=== PATIENT | female | born 1995 | race Caucasian/White ===

== ENCOUNTER 2016-05-27 13:39 | Emergency (ER) | payer OTHER ==
[~2016-05-27] VITALS: Ht 312.4 cm; Wt 74.6 kg
[2016-05-27 13:43] VITALS: TEMP 37.1; Ht 312.4 cm; Wt 74.6 kg
[2016-05-27] MEDS ORDERED: VNTHFA/IN INH (14:35)
[2016-05-27] MEDS ORDERED: SULF800T23 PO (14:35)
[2016-05-27 14:55] LABS: BUN/CREATININE RATIO 11.1 (10-20); CALCIUM 8.8 mg/dl (8.5-10.1); CREATININE 0.9 mg/dl (0.60-1.20); POTASSIUM 3.7 mmol/L (3.5-5.1)
[2016-05-27 14:58] LABS: BASO % 0.3 %; BASO ABS # 0.03 K/uL (0-0.2); COMPLETE YES; EOS % 3.5 %; HEMATOCRIT 39.1 % (37-47); IG% 0.3 %; LYMPH % 23.3 %; LYMPH ABS # 2.41 K/uL (1.2-3.4); MEAN CELL VOLUME 84.3 fL (80-100); MEAN CORPUSCULAR HEMOGLOBIN 30.2 pg (25-34); MEAN CORPUSCULAR HGB CONC 35.8 g/dl (32-36); MEAN PLATELET VOLUME 10.2 fL (7.4-10.4); MONO % 9.1 %; NEUT % 63.5 %; PLATELET COUNT 269 K/uL (130-400); RED BLOOD COUNT 4.64 M/uL (4.2-5.4); WHITE BLOOD COUNT 10.36 K/uL (4.8-10.8)
--- NOTE | 2016-05-27 15:23 | DIAGNOSTIC IMAGING REPORT ---
LEFT LOWER EXTREMITY VENOUS DOPPLER HISTORY: left leg swelling eval for dvt COMPARISON STUDY: None. FINDINGS: There is normal compressibility, flow, and augmentation within the left lower extremity deep venous system. Slight increased echogenicity within the subcutaneous fat of the distal anterior lower leg. This favors a mild cellulitis. No loculated fluid collections to suggest an abscess. IMPRESSION: No DVT within the left lower extremity. Suspect a mild cellulitis within the distal anterior lower leg. No fluid collections to suggest an abscess. Electronically signed by: Alexx Topete M.D. 05/27/2016 3:21 PM Dictated Date/Time: 05/27/2016 3:20 PM
[2016-05-27 16:13] VITALS: BP 109/67; PULSE 61; O2SAT 98
--- NOTE | 2016-05-27 18:00 | EMERGENCY ROOM VISIT NOTE ---
History Report prepared by Leela: Marilyn Nino Under the Supervision of: Dr. Fabian Kaur M.D. First contact with patient: 13:50 Chief Complaint: INFECTION Stated Complaint: BACTERIAL INFECTION IN L LEG Nursing Triage Summary: Pt has infection on LLE Has been on cleocin and bactrim (from [facility]) rechecked at [facility] today and told to come to ED History of Present Illness The patient is a 21 year old female who presents to the Emergency Room with complaints of a worsening left lower extremity wound over the past 10 days. The patient states that she developed a blister on her left fajardo on May 17. She had some pain to the touch of the site of the blister. She is unsure why it developed. She was seen at [facility] on the and had the blister drained. It drained fluid and not pus. She was put on Clindamycin at that time. Her cultures grew Bactrim sensitive Acinetobacter, so she was started on Bactrim 2 days ago and stopped the clindamycin. Yesterday, she had some swelling to her left ankle. She states that she had some pain to the area when she was walking yesterday. Today, the swelling has gone down and the surrounding redness has improved. She only has pain on/around the wound when she walks a significant amount or touches the wound. Today, the patient was seen at [facility] again and was referred to the ED. She was told she may need IV antibiotics or surgery. The patient denies any recent hospitalization or exposure to health care other than in [facility] [employer] [facility]. Denies recent foreign travel. She is not on control. Denies fever, nausea, vomiting, or other complaints. Source of History: patient Onset: 10 days ago Position: other (left fajardo) Symptom Intensity: moderate Quality: other (a wound infection) Timing: worsening Associated Symptoms: No SOB, No chest pain, No fevers, No nausea, No vomiting Note: Other symptoms: pain with a lot of walking or to the touch Review of Systems See HPI for pertinent positives & negatives. A total of 10 systems reviewed and were otherwise negative. Past Medical & Surgical Medical Problems: (1) No Known Active Medical Problems Family History No pertinent family history stated. Social History Smoking Status: Never Smoker Housing Status: lives with roommate Occupation Status: [employer] student Current/Historical Medications Scheduled Albuterol Hfa (Ventolin Hfa), 2-4 PUFFS INH Q6H Sulfamethoxazole-Trimethoprim (Bactrim Ds 800MG/160MG), 1 TAB PO BID Allergies Coded Allergies: No Known Allergies (Unverified , 05/27/16) Physical Exam Vital Signs Date Time Temp Pulse Resp B/P Pulse Ox O2 Delivery O2 Flow Rate FiO2 05/27/16 16:13 61 16 109/67 98 05/27/16 13:43 37.1 84 18 137/88 95 Room Air Physical Exam Constitutional: Vital signs reviewed. Eyes: Pupils are equal round reactive to light. Conjunctiva are noninjected. ENT: Pharynx is clear without erythema or exudate. Mucous membranes are moist. Neck supple without meningeal signs. Respiratory: Clear to auscultation bilaterally. Breath sounds are equal bilaterally. Cardiovascular: Regular rate and rhythm. No rubs or gallops. GI: Soft, nondistended and nontender. Bowel sounds are present. Musculoskeletal: 5x2 cm eschar to the lower fajardo of the left leg without surrounding cellulitis. No fluctuance or abscess. Distal pulses are intact. Mild ankle swelling. Integumentary: No cyanosis. Neurological: The patient is awake and alert. No focal deficits. Psychiatric: Normal affect. Medical Decision & Procedures ER Provider Diagnostic Interpretation: Radiology results as stated below per my review and the radiologist's interpretation: LEFT LOWER EXTREMITY VENOUS DOPPLER HISTORY: left leg swelling eval for dvt COMPARISON STUDY: None. FINDINGS: There is normal compressibility, flow, and augmentation within the left lower extremity deep venous system. Slight increased echogenicity within the subcutaneous fat of the distal anterior lower leg. This favors a mild cellulitis. No loculated fluid collections to suggest an abscess. IMPRESSION: No DVT within the left lower extremity. Suspect a mild cellulitis within the distal anterior lower leg. No fluid collections to suggest an abscess. Electronically signed by: Alexx Topete M.D. 05/27/2016 3:21 PM Dictated Date/Time: 05/27/2016 3:20 PM Laboratory Results 05/27/16 14:14 Red Blood Count 4.64, Mean Corpuscular Volume 84.3, Mean Corpuscular Hemoglobin 30.2, Mean Corpuscular Hemoglobin Concent 35.8, Mean Platelet Volume 10.2, Neutrophils (%) (Auto) 63.5, Lymphocytes (%) (Auto) 23.3, Monocytes (%) (Auto) 9.1, Eosinophils (%) (Auto) 3.5, Basophils (%) (Auto) 0.3, Neutrophils # (Auto) 6.59, Lymphocytes # (Auto) 2.41, Monocytes # (Auto) 0.94, Eosinophils # (Auto) 0.36, Basophils # (Auto) 0.03 05/27/16 14:14 Test 05/27/16 14:14 White Blood Count 10.36 K/uL (4.8-10.8) Red Blood Count 4.64 M/uL (4.2-5.4) Hemoglobin 14.0 g/dL (12.0-16.0) Hematocrit 39.1 % (37-47) Mean Corpuscular Volume 84.3 fL (80-100) Mean Corpuscular Hemoglobin 30.2 pg (25-34) Mean Corpuscular Hemoglobin Concent 35.8 g/dl (32-36) Platelet Count 269 K/uL (130-400) Mean Platelet Volume 10.2 fL (7.4-10.4) Neutrophils (%) (Auto) 63.5 % Lymphocytes (%) (Auto) 23.3 % Monocytes (%) (Auto) 9.1 % Eosinophils (%) (Auto) 3.5 % Basophils (%) (Auto) 0.3 % Neutrophils # (Auto) 6.59 K/uL (1.4-6.5) Lymphocytes # (Auto) 2.41 K/uL (1.2-3.4) Monocytes # (Auto) 0.94 K/uL (0.11-0.59) Eosinophils # (Auto) 0.36 K/uL (0-0.5) Basophils # (Auto) 0.03 K/uL (0-0.2) RDW Standard Deviation 39.4 fL (36.4-46.3) RDW Coefficient of Variation 12.9 % (11.5-14.5) Immature Granulocyte % (Auto) 0.3 % Immature Granulocyte # (Auto) 0.03 K/uL (0.00-0.02) Anion Gap 9.0 mmol/L (3-11) Est Creatinine Clear Calc Drug Dose 117.5 ml/min Estimated GFR () 106.7 Estimated GFR (Non- 92.0 BUN/Creatinine Ratio 11.1 (10-20) Calcium Level 8.8 mg/dl (8.5-10.1) Laboratory results as reviewed by me. ED Course 1350: The patient was evaluated in room C2. A complete history and physical exam was performed. 1543: I reassessed the patient and talked to her about results. She will be discharged home. Medical Decision This is a 21-year-old female who presents with an infection to her left leg swelling. Differential diagnosis includes cellulitis, wound infection, DVT, superficial thrombophlebitis, bacteremia. I did perform a limited focused review of portions of the patient's old chart on the electronic medical record. The patient has had no prior visits to this hospital. I did evaluate the patient as noted above. The patient is presenting with an infection to her left leg which started as a blister about 10 days ago. The blister was drained at an urgent care center and she was placed on antibiotics. She was seen today and told that she had Acinetobacter on her culture and she was recently switched to Bactrim based on the sensitivities. She was sent here for further evaluation by the urgent care clinic. She denies any fever, body aches or vomiting. She has no symptoms consistent with bacteremia or systemic infection. IV access was established. I did order blood cultures. I did order and review the patient's blood work as noted in the electronic medical record. I did order a Doppler ultrasound of the left leg. I did review the images myself as well as the radiology report as described above. There is no evidence of DVT or abscess to the leg. I did discuss the test results with the patient. I did talk to the major case detective who arrange for referral to the wound care clinic. The patient was advised to continue taking her Bactrim. She was discharged in good condition. Impression Primary Impression: Left leg cellulitis Scribe Attestation The scribe's documentation has been prepared under my direct and personally reviewed by me in its entirety. I confirm that the note above accurately reflects all work, treatment, procedures, and medical decision making performed by me. Departure Information Dispostion Home / Self-Care Referrals Gentry Nagy, DO [facility] Patient Instructions Cellulitis , My [facility] Additional Instructions You have been examined and treated today on an emergency basis only. This is not a substitute for, or an effort to provide, complete comprehensive medical care. It is impossible to recognize and treat all injuries or illnesses in a single emergency department visit. It is therefore important that you follow up closely with the wound care clinic. They will call you for an appointment. If they do not call you by tomorrow call them. Return for worsening symptoms or if you develop fever, vomiting, or any other concerning symptoms.
[2016-05-29] MEDS ORDERED: MONT1TAB5 PO (14:09)
== END 2016-05-27 16:14 | disposition home or self-care (01) ==
LOC: C.EDB 13:41 → C.EDC 16:14
DX: L03.116 Cellulitis of left lower limb (principal)